=== PATIENT | female | born 1965 | race Caucasian/White ===

== ENCOUNTER → 2024-04-11 06:26 | Day surgery (SDC) | payer OTHER, SELFPAY | LOC: GI 06:26 | PROVIDERS: ATTENDING PHYSICIAN Internal Medicine | DX: D12.2 Benign neoplasm of ascending colon (principal); D12.3 Benign neoplasm of transverse colon; D12.4 Benign neoplasm of descending colon; K57.30 Diverticulosis of large intestine without perforation or abscess without bleeding; K64.8 Other hemorrhoids | CPT/HCPCS: 45380; 88305 ==

== ENCOUNTER → 2024-06-10 07:59 | Outpatient (REF) | payer OTHER, SELFPAY | LOC: HWRAD 07:59 | PROVIDERS: ATTENDING PHYSICIAN Student in an Organized Health Care Education/Training Program; FAMILY PHYSICIAN Family Medicine | DX: R19.00 Intra-abdominal and pelvic swelling, mass and lump, unspecified site (principal); R10.11 Right upper quadrant pain | CPT/HCPCS: 76700 ==